=== PATIENT | female | born 1960 | race Caucasian/White ===

== ENCOUNTER → 2016-09-25 | Outpatient (CLI) | payer OTHER ==
[~2016-09-25] MED LIST: ADDERALL 5 MG TA5 M1 PO; AFLURIA 2045 MCG/0.4; ATIVAN0.5 MG PO; AVAPRO300 MG PO; BYSTOLIC 5 MG5 M1 PO; CARTIA XT240 M1 PO; CELEXA20 MG PO; CHLORTHALIDONE25 MG PO; COZAAR 25 MG TA25 M1 PO; FLAGYL500 MG PO; FLEXERIL PO; FLORANEX PACKET1 GM PO; FLOVENT HFA 1110 MCG INH; HYDROCHLOROTHIA25 M1 PO; HYDROCHLOROTHIA50 MG PO; HYDROCODONE-AP1 EAC6 PO; LAMICTAL XR100 MG PO; LAMICTAL XR200 MG PO; MULTIVITAMINS PO; NORCO 5-325 TA1 EACH PO; OMEPRAZOLE20 MG PO; PERCOCET PO; PNEUMOVAX25 MCG/0.5; PRILOSEC 20 MG20 MG PO; PRILOSEC20 MG PO; PROTONIX40 M1 PO; TEGRETOL XR400 MG PO; TYLENOL325 MG PO; VITAMIN B-1100 M1 PO; VOL-NATE TABLE1 EACH PO; ZANTAC 150MG T150 M1 PO
== END ==
LOC: RAD 14:52
DX: Z12.31 Encounter for screening mammogram for malignant neoplasm of breast (principal)

== ENCOUNTER → 2016-09-27 | Outpatient (CLI) | payer OTHER | LOC: ULTRA 08:25 | DX: K76.0 Fatty (change of) liver, not elsewhere classified (principal) ==

== ENCOUNTER 2018-04-15 15:35 | Emergency (ER) | payer BC ==
[~2018-04-15] VITALS: Ht 172.7 cm; Wt 97.5 kg
[2018-04-15 17:22] VITALS: BP 132/60
== END 2018-04-15 17:24 | disposition home or self-care (01) ==
LOC: ER 15:35
DX: M54.2 Cervicalgia (principal); R51 Headache; M25.512 Pain in left shoulder; M25.511 Pain in right shoulder; F90.9 Attention-deficit hyperactivity disorder, unspecified type; I10 Essential (primary) hypertension; Z91.041 Radiographic dye allergy status; Z88.8 Allergy status to other drugs, medicaments and biological substances; Z88.2 Allergy status to sulfonamides; Z88.5 Allergy status to narcotic agent; Z90.710 Acquired absence of both cervix and uterus; Z90.5 Acquired absence of kidney